=== PATIENT | female | born 1985 | race African-American/Black ===

== ENCOUNTER 2019-02-06 19:52 | Inpatient (IN) | payer OTHER ==
--- NOTE | 2019-02-06 20:15 | PDOC ---
Rapid Medical Evaluation Time Seen by Provider: 02/06/19 20:12 Medical Evaluation: 02/06/19 20:12 This patient had a brief in-person evaluation cc: weight loss of 23 within 1 month h/o of multiple sclerosis c/o weakness Pe: NAD unlabored breathing non tender abdomen orders: labs This patient will proceed to ed for further evaluation 02/06/19 20:15 Discharge Disposition - Diagnosis Weakness - Referrals - Patient Instructions - Post Discharge Activity
--- NOTE | 2019-02-06 21:55 | PDOC ---
Attending Attestation - Resident Resident Name: Leila Foreman - ED Attending Attestation I have performed the following: I have examined & evaluated the patient, The case was reviewed & discussed with the resident, I agree w/resident's findings & plan - HPI HPI: 02/07/19 00:22 33-year-old female with a history of MS presents with multiple episodes of lightheadedness and near-syncope as well as a 23 pound weight loss in the last month. Patient denies chest pain and leg swelling or trauma. - Physicial Exam PE: 02/07/19 00:23 Agree with resident's exam - Medical Decision Making 02/07/19 00:23 33-year-old female with weight loss and lightheadedness Due to multiple episodes of near-syncope she will be admitted to the hospital for further evaluation
--- NOTE | 2019-02-06 21:56 | PDOC ---
History of Present Illness - General Chief Complaint: Pain Stated Complaint: PAIN/DIZZINESS Time Seen by Provider: 02/06/19 20:12 History Source: Patient Exam Limitations: No Limitations - History of Present Illness Initial Comments: 02/06/19 22:09 33 year old female with PMH MS, chronic LLE weakness/pain, cardiac arrhythmia, asthma presented to ED for pre-syncopal episodes. Pt reported over the last month she has had 3 episodes a week of lightheadedness where she feels she may pass out. Pt denied syncope, LOC, head injury. Pt stated her last pre-syncopal episode was today. Pt admitted to intermittent palpitations, 23 pound weight loss in 1 month. Pt reported she has not changed her diet/exercise in an effort to lose weight. Pt also admitted to left thigh pain x2 weeks consistent with MS flares and LLE weakness which is chronic. Past History - Past Medical History Allergies/Adverse Reactions: Allergies Allergy/AdvReac Type Severity Reaction Status Date / Time No Known Allergies Allergy Verified 02/06/19 20:18 Home Medications: Ambulatory Orders Dalfampridine [Ampyra] 10 mg PO BID 02/07/19 Divalproex [Depakote -] 250 mg PO DAILY 02/07/19 Teriflunomide [Aubagio] 14 mg PO DAILY 02/07/19 Asthma: Yes COPD: No Other medical history: MS, arthristis - Suicide/Smoking/Psychosocial Hx Smoking History: Never smoked Have you smoked in the past 12 months: No Information on smoking cessation initiated: No Hx Alcohol Use: No Drug/Substance Use Hx: No Review of Systems - Review of Systems Able to Perform ROS?: Yes Comments:: 02/06/19 22:11 General: admitted to weight loss. denied fever, chills. HEENT: denied sore throat, rhinorrhea, ear pain. Heart: admitted to palpitations, pre-syncope. denied chest pain, syncope, diaphoresis. Respiratory: denied shortness of breath, cough, sputum production, hemoptysis. Abdomen: denied abdominal pain, nausea, vomiting, diarrhea, constipation, blood in stool. : denied dysuria, increased urinary frequency, hematuria, urinary incontinence , flank pain. Back: denied back pain. Musculoskeletal: admitted to left thigh pain. denied joint swelling. Neurological: admitted to weakness. denied headache, dizziness, numbness, tingling. Skin: denied rash, laceration, abrasion *Physical Exam - Vital Signs Last Vital Signs Temp Pulse Resp BP Pulse Ox 98.2 F 76 18 139/89 100 02/06/19 20:15 02/06/19 20:15 02/06/19 20:15 02/06/19 20:15 02/06/19 20:15 - Physical Exam Comments: 02/06/19 22:12 Constitutional: Well-nourished, Well-developed, appearing stated age. HEENT: head is normocephalic, atraumatic. EOMI. PERRLA. Neck: supple. Full ROM. Heart: regular rhythm. no murmurs, rubs or gallops. Lungs: clear to auscultation bilaterally. no crackles, rhonchi or wheezing. no stridor. Abdomen: soft, nontender. normal bowel sounds. no rebound, guarding, masses. Extremities: peripheral pulses intact. no lower extremity edema. Neurological: CN 2-12 grossly intact. moves all four extremities. Psych: awake, alert, oriented x3. follows commands. answers questions appropriately. ED Treatment Course - LABORATORY CBC & Chemistry Diagram: 02/07/19 06:15 02/07/19 06:10 Medical Decision Making - Medical Decision Making 02/06/19 22:12 33 year old female with above PMH presented to ED for evaluation of pre- syncopal episodes associated with palpitations and 20 pound weight loss in 1 month. Pt reported last pre-syncopal episode was today. Initial Vital Signs Temp Pulse Resp BP Pulse Ox 98.2 F 76 18 139/89 100 02/06/19 20:15 02/06/19 20:15 02/06/19 20:15 02/06/19 20:15 02/06/19 20:15 Afebrile. No tachycardia. No tachypnea. Mild hypertension. No hypoxia on room air. Labs ordered: CBC, CMP, TSH Imaging ordered: CXR Medications ordered: none EKG performed at 2315: rate 61, regular rhythm, normal axis, normal intervals, nonspecific ST changes, QTc 428. 02/06/19 22:42 CBC WBC 5.1 K/mm3 (4.0-10.0) 02/06/19 22:19 RBC 4.19 M/mm3 (3.60-5.2) 02/06/19 22:19 Hgb 12.8 GM/dL (10.7-15.3) 02/06/19 22:19 Hct 38.0 % (32.4-45.2) 02/06/19 22:19 MCV 90.7 fl (80-96) 02/06/19 22:19 MCH 30.5 pg (25.7-33.7) 02/06/19: MCHC 33.6 g/dl (32.0-36.0) 02/06/19 22:19 RDW 13.1 % (11.6-15.6) 02/06/19 22:19 Plt Count 227 K/MM3 (134-434) 02/06/19 22: MPV 8.6 fl (7.5-11.1) 02/06/19: Absolute Neuts (auto) 2.1 K/mm3 (1.5-8.0) 02/06/19: Neutrophils % 40.4 % (42.8-82.8) L 02/06/19 22:19 Lymphocytes % 45.8 % (8-40) H 02/06/19 22:19 Monocytes % 8.3 % (3.8-10.2) 02/06/19:19 Eosinophils % 4.8 % (0-4.5) H 02/06/19:19 Basophils % 0.7 % (0-2.0) 02/06/19: Nucleated RBC % 0 % (0-0) 02/06/19:19 No leukocytosis. No anemia. Mild lymphocyte and eosinophil elevation. 02/06/19 23:10 CMP Sodium 138 mmol/L (136-145) 02/06/19 22:19 Potassium 3.5 mmol/L (3.5-5.1) 02/06/19 22:19 Chloride 106 mmol/L (98-107) 02/06/19 22:19 Carbon Dioxide 25 mmol/L (21-32) 02/06/19 22:19 Anion Gap 7 MMOL/L (8-16) L 02/06/19 22:19 BUN 9.9 mg/dL (7-18) 02/06/19 22:19 Creatinine 0.8 mg/dL (0.55-1.3) 02/06/19 22:19 Est GFR (CKD-EPI)AfAm 110.70 02/06/19 22:19 Est GFR (CKD-EPI)NonAf 95.52 02/06/19 22:19 Random Glucose 84 mg/dL (74-106) 02/06/19 22:19 Calcium 8.5 mg/dL (8.5-10.1) 02/06/19 22:19 Total Bilirubin 0.4 mg/dL (0.2-1) 02/06/19 22:19 AST 17 U/L (15-37) 02/06/19 22:19 ALT 23 U/L (13-61) 02/06/19 22:19 Alkaline Phosphatase 113 U/L (45-117) 02/06/19 22: Total Protein 7.7 g/dl (6.4-8.2) 02/06/19 22:19 Albumin 3.8 g/dl (3.4-5.0) 02/06/19 22:19 TSH 1.76 uIU/ml (0.358-3.74) 02/06/19 22:19 Serum , Qual Negative 02/06/19 22:19 No electrolyte abnormalities. No BRUNA. No transaminitis. TSH within normal limits. Serum negative. 02/06/19 23:40 CXR my read: sharp costophrenic angles. no infiltrate. no large pneumothorax. no cardiomegaly. -Pending official report Pt to be admitted for multiple pre-syncopal episodes, weightloss, palpitations. 02/06/19 23:59 I spoke with LUIS MANUEL Brunson, pt to be admitted under Dr. Galvan's care. Pending admission. 02/08/19 13:51 Follow up: Official CXR report: There are no prior studies for comparison. There are clear lungs, normal mediastinum with sharp angles. The bones and soft tissues are intact. Impression: No acute chest pathology. Reported By: Tony Cheung MD [id number] *DC/Admit/Observation/Transfer Diagnosis at time of Disposition: Pre-syncope - Discharge Dispostion Disposition: AGAINST MEDICAL ADVICE Condition at time of disposition: Stable Decision to Admit order: Yes - Referrals - Patient Instructions - Post Discharge Activity
[2019-02-06 22:31] LABS: BASO % 0.7 % (0-2.0); EOS % 4.8 % (0-4.5); HEMOGLOBIN 12.8 GM/dL (10.7-15.3); LYMPH % 45.8 % (8-40); MCH 30.5 pg (25.7-33.7); MCHC 33.6 g/dl (32.0-36.0); MEAN CELL VOLUME 90.7 fl (80-96); MEAN PLT VOLUME 8.6 fl (7.5-11.1); MONO % 8.3 % (3.8-10.2); NEUT % 40.4 % (42.8-82.8); PLATELET COUNT 227 K/MM3 (134-434); RBC 4.19 M/mm3 (3.60-5.2); RDW 13.1 % (11.6-15.6); WHITE BLOOD COUNT 5.1 K/mm3 (4.0-10.0)
[2019-02-06 23:07] LABS: ALBUMIN 3.8 g/dl (3.4-5.0); BILIRUBIN,TOTAL 0.4 mg/dL (0.2-1); BLOOD UREA NITROGEN 9.9 mg/dL (7-18); CALCIUM 8.5 mg/dL (8.5-10.1); CREATININE 0.8 mg/dL (0.55-1.3); POTASSIUM 3.5 mmol/L (3.5-5.1); TOT PROT 7.7 g/dl (6.4-8.2)
--- NOTE | 2019-02-06 23:59 | HP ---
Admitting History and Physical - Primary Care Physician PCP: Sharita Zarco A - Admission Chief Complaint: Presyncope, Unintenional Weight Loss History of Present Illness: This is a 33 y/o woman with a PMHx of MS, LLE Weakness/Pain, Tachycardia (15 yrs ago, no cardiac work up), Asthma, Migraines. Who presents to the ED with presyncopal episodes x 1 month, had one yesterday, decreased appetite, 20lb unintentional weight loss in 1 month. Patient reports having an episode of palpitations while at rest lasting several seconds. She also reports increased LLE weakness and pain. Patient reports being seen at [facility] for same. She reports being hospitalized 3 yrs ago for Gastritis/ weight loss. Patient denies fever, chills, cough, SOB, CP, AP, N/V/D, constipation, melena, hematochezia, hematuria, dysuria. Patient denies feeling depressed or anxious. 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, Multiple Sclerosis Pulmonary: Yes: Asthma ...LMP: 01/16/19 ...: No - Past Surgical History Additional Past Surgical History: x3 - Smoking History Smoking history: Never smoked Have you smoked in the past 12 months: No - Alcohol/Substance Use Hx Alcohol Use: Yes (occasional) History of Substance Use: reports: None - Social History Usual Living Arrangement: Yes: With Child ADL: Independent History of Recent Travel: No Home Medications - Allergies Allergies/Adverse Reactions: Allergies Allergy/AdvReac Type Severity Reaction Status Date / Time No Known Allergies Allergy Verified 02/06/19 20:18 - Home Medications Home Medications: Ambulatory Orders Dalfampridine [Ampyra] 10 mg PO BID 02/07/19 Divalproex [Depakote -] 250 mg PO DAILY 02/07/19 Teriflunomide [Aubagio] 14 mg PO DAILY 02/07/19 Home Medications (free text): Vitamin D. Magnesium. Albuterol MDI prn. Herbal Supplements: Black Seed Oil. Coconut Oil. Tumeric. Ginko Biloba Family Disease History - Family Disease History Family Disease History: Heart Disease: Father (HTN, RA), Other: Father, Mother ( Alive and Healthy), Brother (Alive and Healthy), Sister (Alive and Healthy), Son (x3 Alive and Healthy) Review of Systems - Review of Systems Constitutional: reports: Unintentional Wgt. Loss, Weakness Eyes: reports: No Symptoms HENT: reports: No Symptoms Neck: reports: No Symptoms Cardiovascular: reports: Palpitations Respiratory: reports: No Symptoms Gastrointestinal: reports: No Symptoms Genitourinary: reports: No Symptoms Breasts: reports: No Symptoms Reported Musculoskeletal: reports: Muscle Weakness Integumentary: reports: No Symptoms Neurological: reports: Dizziness, Other (Presyncope) Endocrine: reports: No Symptoms Hematology/Lymphatic: reports: No Symptoms Psychiatric: reports: No Symptoms Physical Examination Vital Signs: Vital Signs Temperature 98.2 F 02/06/19 20:15 Pulse Rate 76 02/06/19 20:15 Respiratory Rate 18 02/06/19 20:15 Blood Pressure 139/89 02/06/19 20:15 O2 Sat by Pulse Oximetry (%) 100 02/06/19 20:15 Constitutional: Yes: No Distress, Calm, Thin Eyes: Yes: WNL, Conjunctiva Clear, EOM Intact, PERRL HENT: Yes: WNL, Atraumatic, Normocephalic Neck: Yes: WNL, Supple, Trachea Midline Cardiovascular: Yes: WNL, Regular Rate and Rhythm, S1, S2 Respiratory: Yes: WNL, Regular, CTA Bilaterally Gastrointestinal: Yes: WNL, Normal Bowel Sounds, Soft Renal/: Yes: WNL Breast(s): Yes: WNL Musculoskeletal: Yes: WNL Extremities: Yes: WNL Edema: No Peripheral Pulses WNL: Yes Neurological: Yes: Alert, Oriented, Cran Nerves II-XII Intact, Weakness (LLE). No: Facial Droop ...Motor Strength: LUE (5/5), LLE (3/5), RUE (5/5), RLE (4/5) Psychiatric: Yes: WNL, Alert, Oriented Labs: CBC, BMP 02/06/19 22:19 02/06/19 22:19 Laboratory Results - last 24 hr 02/06/19 02/06/19 02/06/19 22:19 22:19 22:19 WBC 5.1 RBC 4.19 Hgb 12.8 Hct 38.0 MCV 90.7 MCH 30.5 MCHC 33.6 RDW 13.1 Plt Count 227 MPV 8.6 Absolute Neuts (auto) 2.1 Neutrophils % 40.4 L Lymphocytes % 45.8 H Monocytes % 8.3 Eosinophils % 4.8 H Basophils % 0.7 Nucleated RBC % 0 Sodium 138 Potassium 3.5 Chloride 106 Carbon Dioxide 25 Anion Gap 7 L BUN 9.9 Creatinine 0.8 Est GFR (CKD-EPI)AfAm 110.70 Est GFR (CKD-EPI)NonAf 95.52 Random Glucose 84 Calcium 8.5 Total Bilirubin 0.4 AST 17 ALT 23 Alkaline Phosphatase 113 Troponin I Total Protein 7.7 Albumin 3.8 TSH 1.76 Serum , Qual Negative 02/07/19 02:00 WBC RBC Hgb Hct MCV MCH MCHC RDW Plt Count MPV Absolute Neuts (auto) Neutrophils % Lymphocytes % Monocytes % Eosinophils % Basophils % Nucleated RBC % Sodium Potassium Chloride Carbon Dioxide Anion Gap BUN Creatinine Est GFR (CKD-EPI)AfAm Est GFR (CKD-EPI)NonAf Random Glucose Calcium Total Bilirubin AST ALT Alkaline Phosphatase Troponin I < 0.02 Total Protein Albumin TSH Serum , Qual Intake & Output 02/04/19 02/05/19 02/06/19 02/07/19 23:59 23:59 23:59 23:59 Weight 72.575 kg Imaging - Results Chest X-ray: Image Reviewed Ultrasound: Pending EKG: Image Reviewed Problem List - Problems (1) Pre-syncope Assessment/Plan: Likely secondary to Arrhythmia vs Dehydration Continue cardiac monitoring Serial Enzymes Appreciate Cardiology consult TSH- nl Serum preg- neg Heme and Chem- nl EKG- NSR no acute changes Chest Xray image- no infiltrate no effusion Echo Carotid Doppler Lipid Panel UDT-pending Fall Precautions Orthostatics Code(s): R55 - SYNCOPE AND COLLAPSE (2) Multiple sclerosis Assessment/Plan: Will continue to monitor and treat with interventions accordingly Fall Precautions Code(s): G35 - MULTIPLE SCLEROSIS (3) Asthma Assessment/Plan: stable No acute flare Albuterol MDI prn Peak Flow Code(s): J45.909 - UNSPECIFIED ASTHMA, UNCOMPLICATED (4) Unintended weight loss Assessment/Plan: Patient reports +20lb weight loss in one month Albumin- 3.8 TSH 1.76 Stool Occult- pending RD consult Monitor CBC, BMP f/u with GI and PCP in outpatient upon d/c Code(s): R63.4 - ABNORMAL WEIGHT LOSS Assessment/Plan This is a 33 y/o young woman with a PMHx of MS, LLE weakness/pain, Asthma. Placed in Telemetry Observation for Presyncope for further evaluation of their emergent condition. Plan: See Problem List FEN PO fluids as tolerated Replete lytes prn Regular Diet DVT ppx OOB Dispo: Observation Visit type - Emergency Visit Emergency Visit: Yes ED Registration Date: 02/06/19 Care time: The patient presented to the Emergency Department on the above date and was hospitalized for further evaluation of their emergent condition. - New Patient This patient is new to me today: Yes Date on this admission: 02/07/19 - Critical Care Critical Care patient: No
[2019-02-07 05:23] LABS: PH,URINE 6.5 (5.0-8.0); URINE APPEARANCE CLEAR; URINE BILIRUBIN NEGATIVE (NEGATIVE); URINE COLOR YELLOW; URINE GLUCOSE (UA) NEGATIVE (NEGATIVE); URINE KETONE NEGATIVE (NEGATIVE); URINE LEUK ESTERASE NEGATIVE (NEGATIVE); URINE NITRITE NEGATIVE (NEGATIVE); URINE PROTEIN NEGATIVE (NEGATIVE)
[2019-02-07 05:33] LABS: COCAINE, UR NEGATIVE ng/ml (CUTOFF=300); METHADONE, UR NEGATIVE ng/ml (CUTOFF=300); OPIATES, URI NEGATIVE ng/ml (CUTOFF=300); PHENCYCLIDINE,URINE NEGATIVE ng/ml (CUTOFF=25); URINE AMPHETAMINES NEGATIVE ng/ml (CUTOFF=500); URINE BARBITURATES NEGATIVE ng/ml (CUTOFF=200); URINE BENZODIAZEPINES NEGATIVE ng/ml (CUTOFF=200)
[2019-02-07 06:49] LABS: BASO % 1.3 % (0-2.0); EOS % 5.9 % (0-4.5); HEMATOCRIT 34.1 % (32.4-45.2); HEMOGLOBIN 11.9 GM/dL (10.7-15.3); LYMPH % 49.6 % (8-40); MCH 31.4 pg (25.7-33.7); MCHC 34.8 g/dl (32.0-36.0); MEAN CELL VOLUME 90.3 fl (80-96); MEAN PLT VOLUME 8.4 fl (7.5-11.1); NEUT % 35.2 % (42.8-82.8); RBC 3.78 M/mm3 (3.60-5.2); RDW 13.2 % (11.6-15.6)
[2019-02-07 07:09] LABS: PLATELET COUNT 212 K/MM3 (134-434)
[2019-02-07 07:18] LABS: CHOLESTEROL 184 mg/dL (50-200); HDL CHOLESTEROL 67 mg/dL (40-60); TRIGLYCERIDES 59 mg/dL (0-150)
[2019-02-07 07:34] LABS: BLOOD UREA NITROGEN 10.5 mg/dL (7-18); CALCIUM 8.4 mg/dL (8.5-10.1); CREATININE 0.9 mg/dL (0.55-1.3); MAGNESIUM 2.3 mg/dL (1.8-2.4); POTASSIUM 3.9 mmol/L (3.5-5.1)
[2019-02-07] MEDS ORDERED: DIVALPROEX SODIUM 250 MG TABLET E.C. PO SCH (10:00)
[2019-02-07] MEDS ORDERED: TERIFLUNOMIDE 14 MG PO SCH (10:00)
[2019-02-07] MEDS ORDERED: PATIENT'S OWN MEDICATION (NON-FORMULARY) (Dalfampridine [Ampyra] 10 MG) PO SCH (10:00)
--- NOTE | 2019-02-07 10:52 | CON.CARD ---
Consult Consult Specialty:: Cardiology Referred by:: Dr. Galvan Reason for Consultation:: near syncope, palpitations - History of Present Illness Chief Complaint: weight loss History of Present Illness: 33 year old woman with a pmh of MS, chronic LLE weakness/pain, asthma, vertigo, h/o tachycardia unknown details, intermittent lightheadedness and near syncope for several months came to the ER for evaluation of unexplained weight loss. Pt seen and examined today in nad. States she has lost 23lbs over the past 1 month. states she has an appointment with her PMD today but decided to come to ER for more rapid evaluation. She also notes a history of vertigo for which her neurologist prescribed meclizine and it resolved. More recently she has had episodes of lightheadedness and near syncope over the past few weeks that occur at randomn and resolve after a few seconds and are different than her prior vertigo symptoms. She also notes intermittent episodes of palpitations, feeling her heart racing at randomn times lasting a few minutes then resolving on its own. states she has had this for years and was told in the past that there was nothing wrong with her heart. She states that she did not come to the ER because of her lightheadedness or palpitations only for her weight loss. Denies chest pain, sob, syncope, pnd, orthopnea, or LE edema. - History Source History Provided By: Patient, Medical Record Limitations to Obtaining History: No Limitations - Past Medical History INTERNET DESIGNER: Yes: Migraine, Multiple Sclerosis Pulmonary: Yes: Asthma ...LMP: 01/16/19 ...: No - Alcohol/Substance Use Hx Alcohol Use: Yes (occasional) History of Substance Use: reports: None - Smoking History Smoking history: Never smoked Have you smoked in the past 12 months: No - Social History ADL: Independent History of Recent Travel: No Home Medications - Allergies Allergies/Adverse Reactions: Allergies Allergy/AdvReac Type Severity Reaction Status Date / Time No Known Allergies Allergy Verified 02/06/19 20:18 - Home Medications Home Medications: Ambulatory Orders Dalfampridine [Ampyra] 10 mg PO BID 02/07/19 Divalproex [Depakote -] 250 mg PO DAILY 02/07/19 Teriflunomide [Aubagio] 14 mg PO DAILY 02/07/19 Family Disease History - Family Disease History Family Disease History: Heart Disease: Father (HTN, RA), Other: Father, Mother ( Alive and Healthy), Brother (Alive and Healthy), Sister (Alive and Healthy), Son (x3 Alive and Healthy) Review of Systems - Review of Systems Constitutional: reports: Unintentional Wgt. Loss, Weakness. denies: No Symptoms , Chills, Diaphoresis, Fever, Lethargy, Loss of Appetite, Malaise, Night Sweats , Other Eyes: denies: No Symptoms, Blind Spots, Blurred Vision, Double Vision, Eye Pain , Floaters, Photophobia, Recent Change in Vision, Other HENT: denies: No Symptoms, Difficult Swallowing, Ear Discharge, Ear Pain, Epistaxis, Gingival Bleeding, Hearing Loss, Mouth Swelling, Nasal Congestion, Ocular Prosthesis, Throat Pain, Toothache, Ringing in Ears, Other Neck: denies: No Symptoms, Decreased ROM, Lumps, Pain on Movement, Stiffness, Swollen Glands, Tenderness, Other Cardiovascular: reports: Palpitations. denies: No Symptoms, Chest Pain, Edema, Shortness of Breath, Other Respiratory: denies: No Symptoms, Cough, Exercise Intolerance, Hemoptysis, Orthopnea, PND, Snoring, SOB, SOB on Exertion, Wheezing, Other Gastrointestinal: denies: No Symptoms, Abdominal Pain, Bloating, Constipation, Diarrhea, Dysphagia, Indigestion, Melena, Nausea, Rectal Bleeding, Vomiting, Vomiting Blood, Other Genitourinary: denies: No Symptoms, Burning, Discharge, Dysuria, Flank Pain, Frequency, Hematuria, Incontinence, Lesions, Menses, Pain, Testicular Mass, Testicular Pain, Testicular Swelling, Urgency, Vaginal Bleeding, Other Breasts: denies: No Symptoms Reported, See HPI, Breast Implants, Discharge from Nipple, Lumps, Pain, Skin Changes, Other Musculoskeletal: reports: Extremity Pain, Muscle Pain, Muscle Weakness. denies : No Symptoms, Back Pain, Crepitus, Decreased ROM, Joint Pain, Joint Swelling, Muscle Cramps, Other Integumentary: denies: No Symptoms, Blister, Bruising, Change in Color, Eczema, Erythema, Incision, Lesions, Lump, Pallor, Pruritis, Rash, Wound, Other Neurological: reports: Dizziness, Pre-Existing Deficit, Weakness. denies: No Symptoms, Change in LOC, Change in Speech, Confusion, Headache, Incoordination, Numbness, Parasthesia, Seizure, Syncope, Tremors, Unsteady Gait, Other Endocrine: denies: No Symptoms, Excessive Sweating, Flushing, Increased Hunger, Increased Thirst, Intolerance to Cold, Intolerance to Heat, Unexplained Weight Gain, Unexplained Weight Loss, Other Hematology/Lymphatic: denies: No Symptoms, Easily Bruised, Excessive Bleeding, Swollen Glands, Other Psychiatric: denies: No Symptoms, Altered Sleep Pattern, Anxiety, Depression, Hallucinations, Panic, Paranoia, Suicidal, Other Vital Signs: Vital Signs Temperature 97.7 F 02/07/19 00:00 Pulse Rate 68 02/07/19 00:00 Respiratory Rate 18 02/06/19 20:15 Blood Pressure 135/81 02/07/19 00:00 O2 Sat by Pulse Oximetry (%) 100 02/07/19 00:00 Constitutional: Yes: No Distress, Calm Eyes: Yes: Conjunctiva Clear, EOM Intact HENT: Yes: Atraumatic, Normocephalic Neck: Yes: Supple, Trachea Midline Respiratory: Yes: Regular, CTA Bilaterally. No: Rales, Rhonchi, SOB, Wheezes Gastrointestinal: Yes: Normal Bowel Sounds, Soft. No: Distention, Tenderness Cardiovascular: Yes: Regular Rate and Rhythm. No: Bradycardia, Tachycardia, Pulse Irregular, Gallop, Rub, Varicosities JVD: No Carotid Bruit: No PMI: Non-Displaced Heart Sounds: Yes: S1, S2. No: Split S2, S3, S4, Clicks, Gallop, Rub, Bruit Murmur: Yes: Systolic Murmur, Grade 2. No: Diastolic Murmur Musculoskeletal: Yes: WNL Extremities: Yes: WNL Edema: No Peripheral Pulses WNL: Yes Neurological: Yes: Alert, Oriented Psychiatric: Yes: Alert, Oriented - Other Data Labs, Other Data: CBC, BMP 02/07/19 06:15 02/07/19 06:10 Troponin, BNP 02/07/19 02/07/19 02:00 06:15 Troponin I < 0.02 < 0.02 Troponin, BNP 02/07/19 02/07/19 02:00 06:15 Troponin I < 0.02 < 0.02 ekg-nsr 61bpm, nsst, otherwise normal ecg Echo: Pending Imaging - Results Chest X-ray: Report Reviewed, Image Reviewed EKG: Report Reviewed, Image Reviewed Other: Report Reviewed, Image Reviewed (tele-no sig arrhythmias recorded) Assessment/Plan 33 year old woman with a pmh of MS, chronic LLE weakness/pain, asthma, vertigo, h/o tachycardia unknown details, intermittent lightheadedness and near syncope for several months came to the ER for evaluation of unexplained weight loss. States she has lost 23lbs over the past 1 month. states she has an appointment with her PMD today but decided to come to ER for more rapid evaluation. She also notes a history of vertigo for which her neurologist prescribed meclizine and it resolved. More recently she has had episodes of lightheadedness and near syncope over the past few weeks that occur at randomn and resolve after a few seconds and are different than her prior vertigo symptoms. She also notes intermittent episodes of palpitations, feeling her heart racing at randomn times lasting a few minutes then resolving on its own. states she has had this for years and was told in the past that there was nothing wrong with her heart. She states that she did not come to the ER because of her lightheadedness or palpitations only for her weight loss. Denies chest pain, sob, syncope, pnd, orthopnea, or LE edema. Lightheadedness/near syncope -h/o vertigo but pt states symptoms feel different -likely related to recent weight loss -unlikely arrhythmia induced -check orthostatic BP -does not require telemetry admission -can have holter as outpatient or if remains inpatient for other reason can place 24 hour Holter inpatient Palpitations-intermittent for years, last episode yesterday -does not correlate with her other symptoms -does not require telemetry for this -can have Holter monitor as outpatient or inpatient if she remains for other reasons -pt states recent TFTs wnl Cardiac murmur -benign on exam -echo was done today, fup results
--- NOTE | 2019-02-07 11:07 | ECHO ---
Version: 1 Name: KEY AQUINO Exam: Adult Echocardiogram Study Date: 02/07/2019, 8:56 AM Age: 33 Years MMode/2D Measurements & Calculations IVSd: 0.71 cm LVIDs: 3.2 cm LVIDd: 4.8 cm LVPWd: 0.71 cm LVOT diam: 1.99 cm Ao root diam: 3.0 cm LA dimension: 2.7 cm Doppler Measurements & Calculations MV E max cezar: 91.3 cm/sec Med E/e': 11.1 MV A max cezar: 44.9 cm/sec Med Peak E' Cezar: 8.2 cm/sec MV E/A: 2.03 Lat E/e': 7.1 Lat Peak E' Cezar: 12.8 cm/sec PI end-d cezar: 72.1 cm/sec Procedure A complete two-dimensional transthoracic echocardiogram was performed (2D, M-mode, Doppler and color flow Doppler). The patient was in normal sinus rhythm during the exam. Left Ventricle The left ventricular size, thickness and function are normal. Left Ventricular Filling pattern is no rmal for age. Right Ventricle The right ventricle is normal in size and function. Atria Normal left and right atrial size and function. Mitral Valve The mitral valve is normal in structure and function. Tricuspid Valve The tricuspid valve is normal in structure and function. Aortic Valve The aortic valve is normal in structure and function. Pulmonic Valve The pulmonic valve is normal in structure and function. Great Vessels The aortic root is normal size. Pericardium/Pleura There is no pericardial effusion. Summary Statements This was essentially a normal study. The left ventricular size, thickness and function are normal The right ventricle is normal in size and function. Oj Alegre 02/07/2019, 10:06 AM Ordering Physician: Shanique Brunson Performed By: Mercedes Fonseca
[2019-02-07] MEDS ORDERED: DIVALPROEX SODIUM 125 MG TABLET E.C. ONE (11:37)
--- NOTE | 2019-02-07 12:42 | EKG ---
Test Reason : Blood Pressure : / mmHG Vent. Rate : 061 BPM Atrial Rate : 061 BPM P-R Int : 184 ms QRS Dur : 084 ms QT Int : 426 ms P-R-T Axes : 063 043 035 degrees QTc Int : 428 ms NORMAL SINUS RHYTHM NORMAL ECG NO PREVIOUS ECGS AVAILABLE Confirmed by Westley Philippe MD ([id number]) on 02/07/2019 12:42:44 PM Referred By: Confirmed By:Westley Philippe MD
[2019-02-07 13:32] VITALS: BMI 24.2
--- NOTE | 2019-02-07 14:40 | PN ---
Progress Note, Physician Chief Complaint: Multiple Sclerosis Pre-Syncope Left LE weakness History of Present Illness: Previous notes and events reviewed awake and alert NAD denies LLE pain but sts weakness is still present denies dizziness, chest pain - Current Medication List Current Medications: Active Medications Divalproex Sodium (Depakote -) 250 mg PO DAILY [facility] Last Admin: 02/07/19 12:05 Dose: Not Given Non-Formulary Medication (Dalfampridine [Ampyra]) 10 mg PO BID [facility] Non-Formulary Medication (Teriflunomide [Aubagio]) 14 mg PO DAILY [facility] - Objective Vital Signs: Vital Signs Temperature 98.1 F 02/07/19 13:12 Pulse Rate 78 02/07/19 13:12 Respiratory Rate 18 02/07/19 13:12 Blood Pressure 133/85 02/07/19 13:12 O2 Sat by Pulse Oximetry (%) 98 02/07/19 13:12 Constitutional: Yes: No Distress, Calm Eyes: Yes: Conjunctiva Clear HENT: Yes: Atraumatic Cardiovascular: Yes: Regular Rate and Rhythm Respiratory: Yes: Regular, CTA Bilaterally Gastrointestinal: Yes: Normal Bowel Sounds, Soft Musculoskeletal: Yes: Muscle Weakness (LLE) Extremities: Yes: WNL Edema: No Neurological: Yes: Alert, Oriented Psychiatric: Yes: Alert, Oriented Labs: CBC, BMP 02/07/19 06:15 02/07/19 06:10 Problem List - Problems (1) Multiple sclerosis Assessment/Plan: -pending Neurology consult -fall precaution Code(s): G35 - MULTIPLE SCLEROSIS (2) Pre-syncope Assessment/Plan: -Cardiology on board -can follow up as outpatient with cardiology for holter monitor -head ct scan -pending Neurology consult Code(s): R55 - SYNCOPE AND COLLAPSE (3) Unintended weight loss Assessment/Plan: -Dietary consult -TSH wnl -Stool OB pending Code(s): R63.4 - ABNORMAL WEIGHT LOSS Assessment/Plan see problem list dvt ppx
[2019-02-07 18:05] VITALS: BP 140/85; PULSE 75; TEMP 98.3
--- NOTE | 2019-02-07 18:10 | HOSP ---
Physical Examination Vital Signs: Vital Signs Temperature 98.3 F 02/07/19 17:00 Pulse Rate 75 02/07/19 17:00 Respiratory Rate 118 H 02/07/19 17:00 Blood Pressure 140/85 02/07/19 17:00 O2 Sat by Pulse Oximetry (%) 98 02/07/19 13:12 Labs: CBC, BMP 02/07/19 06:15 02/07/19 06:10 Hospitalist Encounter Assessment: Patient admitted for presyncope and is asking to leave AMA Patient tells me that she has family obligations and she is unable to stay in the hospital any longer and must leave now Explained to her that she should be seen by the neurologist for her acute symptoms and she should stay and be monitored closely but she is refusing. She has shown me that she has the capacity to make her own medical decisions and signed the AMA paperwork in my presence. Risks of leaving AMA discussed and she is willing to take the risks. Encouraged her to make an appointment with her neurologist.
== END 2019-02-07 18:10 | disposition left against medical advice (07) | DRG 312 ==
LOC: JER 19:52 → JERBED 23:10 → J7W 02-07 13:04 → OBSVTOIN 02-07 14:54
PROVIDERS: ADMIT Family Medicine; ATTEND Family Medicine
DX: R55 Syncope and collapse (principal); G35 Multiple sclerosis; J45.909 Unspecified asthma, uncomplicated; R63.4 Abnormal weight loss; R00.2 Palpitations
CPT/HCPCS: 36415; 71045-TC-FY; 80048; 80053; 80061; 80307; 81003; 83721; 83735; 84100; 84443; 84484; 84703; 85025; 93005; 93010; 93306-TC; 93880-TC; 99285-25; G0378

== ENCOUNTER 2023-01-04 15:12 | Emergency (ER) | payer BC, OTHER ==
[2023-01-04 15:24] VITALS: BP 151/89; PULSE 94; RESP 18; TEMP 98.1; BMI 26.3
[2023-01-04] MEDS ORDERED: KETOROLAC TROMETHAMINE 30 MG/1 ML VIAL IM ONE (15:58)
[2023-01-04] MEDS ORDERED: KETOROLAC TROMETHAMINE 30 MG/1 ML VIAL ONE (16:01)
== END 2023-01-04 18:53 | disposition home or self-care (01) ==
LOC: JERFT 15:12
PROC: 3E0233Z Introduction of Anti-inflammatory into Muscle, Percutaneous Approach (ICD-10-PCS; principal; 2023-01-04)
DX: S92.324A Nondisplaced fracture of second metatarsal bone, right foot, initial encounter for closed fracture (principal); W18.30XA Fall on same level, unspecified, initial encounter
CPT/HCPCS: 73562-TC-RT-FY; 73630-TC-RT-FY; 96372; 99284-25